=== PATIENT | female | born 1990 ===

== ENCOUNTER 2020-10-18 13:44 | Inpatient (IN) ==
[2020-10-18 14:50] LABS: Urine Appearance Clear; Urine Bilirubin Negative (Negative); Urine Blood Negative (Negative); Urine Color Yellow; Urine Glucose Negative (Negative); Urine Ketones 1+ (Negative); Urine Nitrite Negative (Negative); Urine Protein Negative (Negative); Urine Specific Gravity 1.018 (1.010-1.030); Urine Urobilinogen Negative (Negative)
[2020-10-18 14:56] LABS: ABS Basophils 0.1 10^3/ul (0-0.2); ABS Lymphocytes 1.8 10^3/ul (1.0-4.8); ABS Monocytes 0.4 10^3/ul (0-0.8); Eosinophil % 0.3 %; Hematocrit 36 % (35-47); Hemoglobin 10.4 g/dL (12.0-16.0); Lymphocyte % 28.6 %; Mean Corpuscular HGB Conc 29 g/dL (31-36); Mean Corpuscular Hemoglobin 16 pg (27-31); Mean Corpuscular Volume 54 fL (80-97); Mean Platelet Volume 9.5 fL (7.4-10.4); Nucleated Red Blood Cells % 0.1; Platelet Count 366 10^3/uL (150-450); Red Cell Distribution Width 22 % (10-15); White Blood Count 6.3 10^3/uL (3.5-10.8)
[2020-10-18 15:01] LABS: Urine Benzodiazepine Screen None Detected (None Detect); Urine Cannabinoids Screen None Detected (None Detect); Urine Opiates Screen None Detected (None Detect)
[2020-10-18 15:08] LABS: ALT 11 U/L (7-52); AST 15 U/L (13-39); Albumin 5.3 g/dL (3.2-5.2); Albumin/Globulin Ratio 1.8 (1-3); Alkaline Phosphatase 39 U/L (34-104); Anion Gap 9 mmol/L (2-11); BUN/Creatinine Ratio 25.9 (8-20); Blood Urea Nitrogen 21 mg/dL (6-24); CO2 Carbon Dioxide 25 mmol/L (22-32); Calcium 9.9 mg/dL (8.6-10.3); Chloride 103 mmol/L (101-111); EGFR African American 101.9 (>60); EGFR Non-African American 84.2 (>60); Globulin 2.9 g/dL (2-4); Glucose 91 mg/dL (70-100); Potassium 3.7 mmol/L (3.5-5.0); Sodium 137 mmol/L (135-145); Total Protein 8.2 g/dL (6.4-8.9)
[2020-10-18 15:15] LABS: HCG Pregnancy < 0.60 mIU/mL
[2020-10-18 15:35] LABS: Microcytosis 3+
[2020-10-18 15:36] LABS: Acanthocytes 2+; Burr Cells 2+; Schistocytes 2+; Spherocytes 2+; Tear Drop Cells 2+
[2020-10-18 15:38] LABS: Alcohol, S < 10 mg/dL (<10); Salicylate < 2.50 mg/dL (<30)
[2020-10-18 15:53] LABS: TSH Ultra Thyroid Stim Horm 1.04 mcIU/mL (0.34-5.60)
[2020-10-18 15:57] LABS: Acetaminophen < 15 mcg/mL
[2020-10-19 03:57] VITALS: BP 94/65
[2020-10-19] MEDS ORDERED: Al Hydrox/Mg Hydrox/Simet LIQ 30 ML UDC PO PRN (04:01)
[2020-10-19] MEDS ORDERED: Vitamin THERAPEUTIC TAB PO SCH (09:00)
== END 2020-10-19 16:40 | disposition home or self-care (01) | DRG 881 ==
LOC: ED 13:44 → BSU 10-19 01:35
PROVIDERS: ADMIT Psychiatry & Neurology Psychiatry; ATTEND Psychiatry & Neurology Psychiatry